=== PATIENT | female | born 1955 | race Caucasian/White ===

== ENCOUNTER 2022-08-25 12:35 | Outpatient (CLI) | payer MEDICARE, SELFPAY ==
[2022-08-25 21:53] LABS: Chloride* 99 mmol/L (96-114)
[2022-08-25 21:54] LABS: Albumin* 5.1 g/dL (3.3-5.0); Sodium* 139 mmol/L (135-149)
[2022-08-25 21:55] LABS: Potassium* 4.3 mmol/L (3.6-5.1)
[2022-08-25 21:57] LABS: Alkaline Phosphatase* 103 U/L (40-150); Aspartate Amino Transferase* 30 U/L (12-35); Bilirubin Total* 0.7 mg/dL (0.1-1.5); Blood Urea Nitrogen* 16 mg/dL (7-30); Carbon Dioxide* 29 mmol/L (20-32); Cholesterol* 166 mg/dL (90-199); Creatinine* 0.8 mg/dL (0.5-1.5); Estimated Glomerular Filt Rate 80 ml/min; Glucose* 94 mg/dL (60-115); Total Protein* 7.7 g/dL (6.0-8.3)
[2022-08-25 21:58] LABS: Alanine Aminotransferase* 30 U/L (4-35); Calcium* 10.2 mg/dL (8.4-10.6); HDL Cholesterol* 55 mg/dL (>=50); LDL Cholesterol Calculated 82 mg/dL (<100); Triglycerides* 143 mg/dL (40-149)
== END 2022-08-25 12:36 | disposition home or self-care (01) ==
PROVIDERS: PCP Physician Assistant Medical; Visit Provider Physician Assistant Medical
DX: Z00.00 Encounter for general adult medical examination without abnormal findings (principal); E78.5 Hyperlipidemia, unspecified; I10 Essential (primary) hypertension; Z13.29 Encounter for screening for other suspected endocrine disorder
CPT/HCPCS: 80053; 80061; 84443

== ENCOUNTER 2022-11-25 13:53 | Outpatient (CLI) | payer MEDICARE, SELFPAY ==
--- NOTE | 2022-11-25 14:00 | CRLHL7_ITS ---
For Patients: As a result of the Century Cures Act, medical imaging exams and procedure reports are released immediately into your electronic medical record. You may view this report before your referring provider. If you have questions, please contact your health care provider. BILATERAL SCREENING MAMMOGRAM WITH COMPUTER-AIDED DETECTION TECHNIQUE: CC and MLO views were obtained. These mammographic images have been obtained using full-field digital technique. These mammographic images were interpreted with the benefit of computer-aided detection. COMPARISON FILM: 10/07/21, 10/27/17, 07/09/16. FINDINGS: There are scattered areas of fibroglandular density. IMPRESSION: There is no radiographic evidence for malignancy. ASSESSMENT: BI-RADS Category 1: Negative RECOMMENDATION: Routine screening mammogram in 1 year. A lay language report of this examination will be provided to the patient. MAMADOU ESPARZA M.D. Diagnostic Radiologist [email or web address] Transcribed: 11/26/2022, 2:[address]/Dictated by: Mamadou Esparza MD @ 11/26/2022 8:14:00 AM (Electronically Signed)
== END 2022-11-25 13:54 | disposition home or self-care (01) ==
PROVIDERS: PCP Physician Assistant Medical; Visit Provider Physician Assistant Medical
DX: Z12.31 Encounter for screening mammogram for malignant neoplasm of breast (principal)
CPT/HCPCS: 77063; 77067

== ENCOUNTER 2022-12-01 06:49 | Day surgery (SDC) | payer MEDICARE, SELFPAY ==
[2022-12-01] VITALS (8 sets, daily range): BP systolic 113–135; BP diastolic 68–89; PULSE 56–62; RESP 16; TEMP 36.3–36.5; O2SAT 93–99; BMI 26.8
[2022-12-01] MEDS: LACTATED RINGERS 1000 ML 1,000 ML 100 ML IV (07:30)
[2022-12-01] MEDS: SODIUM CHLORIDE 0.9 % (FLUSH) 10 ML SYRINGE IVF (07:58)
[2022-12-01] MEDS: MIDAZOLAM HCL 1 MG/ML inj IVP (08:06)
[2022-12-01] MEDS: fentaNYL 100 MCG/2 ML inj IVP (08:06)
--- NOTE | 2022-12-01 08:06 | SUR.PREOP ---
TIME?OUT:?0803 PT/RN/MDA?VERIFICATION?OF?SURGICAL?SITE Right Arm,?PROCEDURE Nerve Block,?AND?CONSENT OBTAINED?PRIOR?TO?INVASIVE?PROCEDURE.
--- NOTE | 2022-12-01 08:30 | CRLHL7_ITS ---
For Patients: As a result of the Century Cures Act, medical imaging exams and procedure reports are released immediately into your electronic medical record. You may view this report before your referring provider. If you have questions, please contact your health care provider. Indication: right thumb MCP joint fusion Technique: Three fluoroscopic images of the right thumb. Fluoroscopic time 51.8 seconds. IMPRESSION: Fluoroscopic guidance for fusion about the 1st MCP joint. Dictated by Mamadou Garcia MD @ 12/01/2022 12:16:08 PM (Electronically Signed)
--- NOTE | 2022-12-01 08:33 | W.PM.NB ---
Nerve Block Nerve Block Time Seen by Provider: 08:10 Date Seen: 12/01/22 Type of block requested by surgeon for post-operative analgesia: axillary Side: right Time out performed: Yes Verification of patient name: Yes Verification of date of : Yes Site marking: site marked Name of person performing procedure: Sae Hensley Continuous monitoring Was continuous monitoring of O2 sat, B/P, environmental monitoring specialist, recorded every 15 minutes?: Yes Procedure Checklist: sterile prep, needles and gloves Ultrasound guided. Images saved: Yes Medications given in 5ml increments after negative aspiration: Lidocaine %: 2.0 mL: 20 Needle gauge: 21 Patient tolerated procedure well: Yes Additional comments: Injected in 5ml increments after negative aspiration Block Charges Block Charge (with Pro Fee): Axillary Nerve Use of Ultrasound Machine for Block: Yes- US Guidance/pain block
[2022-12-01] MEDS: CEFAZOLIN 2 GM in 0.9 % SODIUM CHLORIDE Mini-bag 100 ML IVPB (08:41)
--- NOTE | 2022-12-01 10:03 | P.ORPRC_ITS ---
Procedure Note Date of procedure: 12/01/22 Procedure: PREOPERATIVE DIAGNOSIS: 1. 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 Right thumb MCP joint arthrodesis 2. 25921 - Intraoperative fluoroscopy use and interpretation. SURGEON: Mychal Agee MD. SILK SCREEN PRINTER HELPER: Mahesh SONG - Of note, an real estate executive assistant was critical for this case to aid in patient positioning, tissue retraction, limb manipulation/positioning, finger manipulation/control, protection of critical structures, closure, and splinting. ANESTHESIA: Regional block IMPLANTS: AccuMed headless compression screw (3.6 mm) TOURNIQUET: 35 min 225 torr forearm tourniquet COMPLICATIONS: None evident INDICATIONS: The patient is a pleasant 67-year-old female who has experienced right thumb MCP joint deformity with angulation, subluxation of the DIP joint, pain, and dysfunction. Additionally, nonoperative management of been tried and failed. Thus surgery was indicated. DESCRIPTION OF PROCEDURE: Following a thorough discussion of risks, benefits, and alternatives consent was obtained and the operative digit(s) was marked. The patient was brought to the operating room and placed supine on the operating table after preoperative regional block was administered by Anesthesia in preop holding. 1 g IV Ancef was administered within 1 incision preoperatively. Proper time-out was performed identifying proper patient, site, and procedure. The operative extremity/digit was prepped and draped in the appropriate sterile fashion using ChloraPrep. The digit was exsanguinated and the tourniquet utilized on the forearm. Longitudinal incision was made overlying the thumb MCP joint. Sharp incision through skin and blunt dissection through subcutaneous tissue allowed identification of the extensor mechanism. EPL and EPB tendons were divided sharply and retracted to the respective sides. The joint capsule was divided longitudinally dorsally. The collateral ligaments were released and the joint dislocated. Osteophytes were rongeured around the perimeter. A guide pin was 1st placed into the metacarpal retrograde and reamed with a cup and cone Reamer. A size 14 was selected. This was performed after C-arm fluoroscopic imaging confirmed the guide pin to be in appropriate position. We then and did a similar process with the base of the proximal phalanx after guide pin, reaming, and penetrating the reamed metacarpal head and proximal phalanx base with a 1.5 mm drill bit to aid in bleeding and eventual fusion. A K-wire was then drilled into the proximal phalanx antegrade an exit out the IP joint. We then retrograde drilled this into the metacarpal head and shaft. It exited the metacarpal on the radial side slightly. A skin incision was made overlying the exit site at the mid to base part of the metacarpal were the K- wire exited. The screw length was selected (30 mm), this was reamed, and the screw placed. Excellent compression was achieved. The thumb was held at the MCP joint in approximately 20? of flexion and if anything slight pronation. C-arm was utilized to confirm pin location, MCP joint compression and position, and screw location. At this stage, a thorough irrigation normal saline was performed. Tourniquet was released. Hemostasis achieved. Closure of the skin flaps performed with 3-0 Vicryl to reapproximate the extensor mechanism, and 4-0 Monocryl/Stratafix. Dressings were applied and a thumb spica splint was applied. The patient was woken from anesthesia and transferred the recovery room in stable condition. PLAN: 1. Encourage elevation of the operative extremity. 2. Icing of the fingers and hand/wrist as tolerated/needed 3. Acetaminophen and/or Percocet as needed for pain control. 4. Follow up with PA visit in 7-10 days for removal of splint, transition to thumb spica cast. Include the IP joint. Follow-up at 5 week [place] postop for cast removal and x-rays at that visit (3 views thumb) with OT visit to follow for Orthoplast splint fabrication.
--- NOTE | 2022-12-01 10:30 | W.ANESCHARGE ---
Anesthesia Charges Start Date/Time Anesthesia Start Date: 12/01/22 Anesthesia Start Time: 08:34 Stop Date/Time Anesthesia Stop Date: 12/01/22 Anesthesia Stop Time: 10:28
== END 2022-12-01 11:29 | disposition home or self-care (01) ==
PROVIDERS: PCP Physician Assistant Medical; Visit Provider Orthopaedic Surgery Sports Medicine
PROC: (CPT 26860; principal; 2022-12-01 08:45)
DX: M18.11 Unilateral primary osteoarthritis of first carpometacarpal joint, right hand (principal)
CPT/HCPCS: 26850; 1820; 64417; 73140; 76942; C1713; J0690; J2250; J2405; J2704; J3010; J3490; J7120

== ENCOUNTER 2023-02-18 09:00 | Outpatient (RCR) | payer MEDICARE, SELFPAY ==
--- NOTE | 2023-01-07 13:35 | OT.OPOE ---
OT Outpatient Ortho Eval OT Outpatient Ortho Eval Start: 01/06/23 18:34 Freq: Status: Active Protocol: Document 01/07/23 10:27 AMB (Rec: 01/07/23 12:48 AMB [id number]) E-signed By Jess Odonnell, OTR/L, CLT, RADIOLOGIC TECHNICIAN OT OP Ortho Eval Details Type Type Eval Insurance Information Insurance Information Medicare B Outpatient History/Precautions Current Condition/Medical Diagnosis Referring Provider Dr Agee Treatment Diagnosis RUE thumb MCP arthrodesis Date of Onset 12/01/22 Precautions Lifting Restrictions,Range of Motion Medical Conditions Depression,Metal Implants, Arthritis Other Conditions BLE TKA 2013 with revision in 2021. Medical/Functional History Medical History Reviewed Yes Prior Level of Function/Mobility Full use of RUE with arthritic pain / limitations in the thumb. Social History Employment Status Retired Current Occupation Retired but cares for grandchildren Hobbies Riding and caring for horses, gardening Oriented Mental Status No Concerns Ortho Subjective Subjective Subjective Pt states she has had increased pain in her thumb over the past few years due to arthritis. Pt states she's had arthritis in her hands for years. Pt feels she is doing ok since surgery, not needing any pain meds, using Tylenol and Ibuprofen prn. Pt states when she has pain it is around 3/10. Wrist Goniometric Wrist Right Active Flexion (70-90 degrees) 70 Active Extension (60-70 degrees) 45 L Active Ulnar Deviation (20-30 degrees) 25 Active Radial Deviation (15-20 degrees) 20 Thumb Goniometric Thumb Left Active MCP Flexion (40-50 degrees) 15 L Active MCP Extension (0 degrees) 0 H Active IP Flexion (70-100 degrees) 15 L Query Text: Opposition to 5th Digit Tip (0 cm) 0 H OT Objective Data Hand Hand Dominance Right Skin/Wounds Skin Integrity Comments 01/07/23 Surgical incision is covered with post-op glue, incision is intact. No drainage, no s/s of infection. Sensation Sensation Assessment Summary Comments 01/07/23 Pt denies paresthesia. OT Problems Problems Problems Decreased Strength,Decreased Range of Motion,Decreased Dexterity,Decreased Fine Motor ,Decreased Coordination, Lifting,Gripping,Pinching Other Problems Writing,Opening Containers, Dressing,Computer,Fasteners Patient Potential Good Assessment Assessment Assessment Pt presents to OT following her f/u with Dr Agee. Pt has orders for eval and treat and custom splinting for protective healing of the RUE thumb MP arthrodesis. Pt is doing well, minimal pain. Pt does have generalized RUE weakness and limited AROM in the fingers, thumb and wrist. Pt will benefit from skilled OT services in order to restore full, pain-free use of her RUE. Pt has multiple orthopedic deformities in her hand joints secondary to OA, she may also benefit from pt education regarding joint protection techniques. Occupational Therapy Treatment Plan - OP Potential Rehabilitation Potential Good Set Goals Goals Set with Patient Yes Goals Goals 1. Pt will be independent and compliant with HEP in order to resume full, pain-free use of the involved UE. 3 weeks 2. Pt will demonstrate full, pain-free AROM of the involved UE in order to improve ability to grasp and hold. 6 weeks 3. Pt will demonstrate pain- free electricity trader and pinch strength comparable to the uninvolved side in order to improve functional grasp, hold, reach, and lifting ability needed to complete self-care, leisure tasks, and work activities. 8 weeks. Target Date 03/09/23 Progress set Treatment Plan Treatment Plan Evaluation,Edema Control,Joint Mobilization,Manual Therapy, Splinting,Ultrasound,Wound Care/Scar Management, Therapeutic Exercise, Therapeutic Activities,Self- Care/Home Management,Education Expected Frequency 1-2x Week Expected Duration 8-10 Weeks Certification Certification I Certify That: Therapy Services Provided, Therapy Plan Established, Therapy Plan Reviewed Recertification Information Recertification Information Initial Certification Date 01/07/23 Recertification Due Date 04/07/23 Reasons to Continue Skilled Therapy Initiated OT today for custom splinting and rehabilitation following RUE thumb MCP arthrodesis. Rehabilitation Potential Good. Continued Plan of Care and Interventions Please refer to above POC. Provider Signature Shows Agreement With POC & Medical Necessity Physician Comment/Change Comment or Changes Physician NPI Number #
== END 2023-06-18 23:59 | disposition home or self-care (01) ==
PROVIDERS: PCP Physician Assistant Medical; Visit Provider Physician Assistant Surgical
DX: Z98.1 Arthrodesis status (principal); Z51.89 Encounter for other specified aftercare
CPT/HCPCS: 97110; 97140; L3913; X5282

== ENCOUNTER 2023-03-31 14:49 | Outpatient (CLI) | payer MEDICARE, SELFPAY ==
--- NOTE | 2023-03-31 15:00 | CRLHL7_ITS ---
For Patients: As a result of the Century Cures Act, medical imaging exams and procedure reports are released immediately into your electronic medical record. You may view this report before your referring provider. If you have questions, please contact your health care provider. DXA BONE MINERAL DENSITY STUDY Current height (in): 65.0. Weight (lb): 165.0. Menopause age: 48. Ethnicity: White. Reason for exam: Screening for osteoporosis. 1. Have you had a previous hip or vertebral fracture? No. 2. Have you had any fractures during your adult life which did not result from significant trauma (e.g., auto accident)? No. 3. Did either of your parents have a hip fracture? No. 4. Do you smoke? No. 5. Have you ever taken Glucocorticoids? No. 6. Do you have rheumatoid arthritis? Yes. 7. Do you have secondary osteoporosis? No. 8. Do you drink 3 or more alcoholic drinks per day? No. 9. Are you being treated for osteoporosis? No. 10. Have you ever taken any of the following medications: Actonel, Evista, Fosamax, Miacalcin, Reclast, Boniva, Forteo, HRT (i.e. estrogen/hormone therapy), Protelos, Prolia, Vitamin D, Calcium, other ??? please specify. ANSWER: Yes, vitamin D, calcium. 11. Do you have any of the following medical conditions: Anorexia or bulimia, asthma or emphysema, end stage renal disease, hyperparathyroidism, any seizure disorders, cancer, inflammatory bowel diseases, hysterectomy, other ??? please specify. ANSWER: Yes, asthma or emphysema. 12. What was your maximum height (inches)? 65. 13. Do you perform weight bearing exercise regularly? No. 14. Do you regularly consume dairy products? Yes. 15. Do you drink caffeinated beverages? Yes. 16. At what age did your period start? 11. 17. Are you premenopausal? No. 18. How many full term pregnancies have you had? 4. 19. Have you ever missed your period for more than 6 months in a row (not including or menopause)? No. TECHNIQUE: Bone mineral density study was performed using the [employer]. FINDINGS: The results of the study expressed as bone mineral density (BMD) are as follows: Lumbar spine L1 to L4: BMD: 1.087 g/cm2. T-score: 0.4. Z-score: 2.4. Neck Left: BMD: 0.741 g/cm2. T-score: -1.0. Z-score: 0.8. Right: BMD: 0.759 g/cm2. T-score: -0.8. Z-score: 1.0. Total Left: BMD: 0.988 g/cm2. T-score: 0.4. Z-score: 1.9. Right: BMD: 0.945 g/cm2. T-score: 0.0. Z-score: 1.5. IMPRESSION: Normal bone density. *Comparison exams done prior to 03/2020 were performed on different unit, [employer]. COMPARISON: Compared with scan of 10/07/2021, the bone mineral density has decreased by 1.2 percent at the spine and decreased by 0.7 percent at the hip. Mamadou Garcia M.D. Diagnostic Radiologist [email or web address] Transcribed: 9:58 am DW/Dictated by: Mamadou Garcia MD @ 04/01/2023 6:51:00 AM (Electronically Signed)
== END 2023-03-31 14:50 | disposition home or self-care (01) ==
LOC: RAD 14:49
PROVIDERS: PCP Physician Assistant Medical; Visit Provider Physician Assistant Medical
DX: Z13.820 Encounter for screening for osteoporosis (principal); Z78.0 Asymptomatic menopausal state
CPT/HCPCS: 77080

== ENCOUNTER 2023-08-04 11:15 | Outpatient (RCR) | payer MEDICARE, SELFPAY ==
--- NOTE | 2023-07-29 17:58 | OT.OPODN ---
OT Outpatient Ortho Daily Note OT Outpatient Ortho Daily Note* Start: 07/29/23 15:41 Freq: Status: Active Protocol: Document 07/29/23 15:41 AMB (Rec: 07/29/23 17:55 AMB [id number]) E-signed By Jess Odonnell, OTR/L, CLT, IMPROVEMENT DIRECTOR Type of Note Type of Note Type of Note Daily Note Visit Number 1 Insurance Information Insurance Information [facility],Medicare B Outpatient History/Precautions Current Condition/Medical Diagnosis Referring Provider Dr Agee Treatment Diagnosis RUE thumb MCP arthrodesis with non-union Date of Onset 12/01/22 Other Precautions No heavy use of the RUE, splint on with activity Medical Conditions Depression,HTN,Metal Implants, Arthritis Other Conditions Medications: albuteisit Daterol sulfate 90 mcg/actuation 2 puffs inhalation Q4H PRN amlodipine 5 mg PO BID atorvastatin 10 mg PO QHS fluoxetine 40 mg PO QAM hydrochlorothiazide 25 mg orally once daily for blood pressure; losartan 100 mg PO QDAY PMH: Snoring (Acute) R06.83 - Snoring (ICD-10) Postsurgical arthrodesis status (Acute 12/01/22) right thumb MCP joint arthrodesis (12/01/2022, Dr. Agee) - with nonunion clinically and radiographically Z98.1 - Arthrodesis status ( ICD-10) Urinary leakage (Acute) R32 - Unspecified urinary incontinence (ICD-10) Thyroid nodule (Acute) Last ultrasound was 11/06/2021 E04.1 - Nontoxic single thyroid nodule (ICD-10) Hyperlipidemia (Acute) E78.5 - Hyperlipidemia, unspecified (ICD-10) Gastroesophageal reflux disease (Acute) EGD K21.9 - Gastro-esophageal reflux disease without esophagitis (ICD-10) Elevated liver function tests (Acute) 11/02/2021-AST 33, ALT 47 10/31/2020-AST 77, ALT 47 R79.89 - Other specified abnormal findings of blood chemistry (ICD-10) Hypertension (Acute) I10 - Essential (primary) hypertension (ICD-10) Medical History (Reviewed @ 09:24 by Berry Osorio) Carotid bruit present R09.89 - Other specified symptoms and signs involving the circulatory and respiratory systems (ICD-10) Surgical History (Reviewed @ 09:24 by Berry Osorio) Postsurgical arthrodesis status (12/01/22) Z98.1 - Arthrodesis status ( ICD-10) Status post revision of total replacement of right knee () Z96.651 - Presence of right artificial knee joint (ICD-10) History of bladder surgery Z98.890 - Other specified postprocedural states (ICD-10) History of bilateral knee replacement (03/20/14) Z96.653 - Presence of artificial knee joint, bilateral (ICD-10) Medical/Functional History Medical History Reviewed Yes Prior Level of Function/Mobility Full use of the RUE with arthritic pain in the MCP of thumb Social History Employment Status Retired Hobbies Gardening, taking care of horses Fitness Stays active on the farm Ortho Subjective Subjective Subjective Pt returns to OT for custom splinting. Pt had arthrodesis of the RUE thumb MCP joint in November. Pt received OT for ROM, strengthening and splinting. Pt had a setback and had to endure more casting due to non-union. Pt got her final cast off today and is in need of additional custom splint for protective healing of the MCP joint. Pt is also using a bone stimulator which she will have until the end of August at which point she will return to orthopedics for re-check. Pt states she really isn't having any pain in her thumb and has been trying hard to rest her hand which is difficult as she enjoys working outside, gardening and working with horses. OT OP Daily Ortho Note/Assessment Splinting Splinting Minutes (minutes) 35 Splinting Comments Provided pt with a custom fabricated, RUE, hand based thumb spica orthosis with IP free for protected healing of the MCP arthrodesis. Pt was advised to follow Dr Holly' s recommendations to wear splint with activity. Pt states she has home exercise program from previous round of therapy to work on her IP joint and wrist ROM, she will resume these now that the cast has been removed, understands that she should do no more than that and especially to avoid strengthening exs. Home Program Home Program Home Program Initiated Home Program Specifics AROM of thumb IP and wrist on the RUE, splint on with all activity Assessment Assessment Assessment Pt is a very pleasant 67yo female presenting for custom splinting for RUE MCP arthrodesis. Pt did have a custom splint that she received following her surgery but states she wore it out and it cracked. Pt has had a rough go of her healing, states she's had to have 3 or 4 casts and a bone stimulator, states she was happy to find out today that things were looking better on her x-ray. Pt denies any pain but does understand that she needs to continue to protect the arthrodesis in order to solidify the fusion. Pt will continue to use her splint with activity, she will also continue with the bone stimulator and AROM exs for the IP and wrist only at this time. Pt feels she would like to work on her HEP on her own at this time. Occupational Therapy Treatment Plan - OP Potential Rehabilitation Potential Good Set Goals Goals Set with Patient Yes Goals Goals 1. Pt will be provided with a custom fabricated, hand based, RUE thumb spica splint for protected healing of the MCP arthrodesis. This goal was met today. Treatment Plan Treatment Plan Splinting Other Treatment Plan 1 visit for splinting. Expected Duration 1 visit Occupational Therapy Billing Units Treatment Minutes Untimed Treatment Minutes 35 Total Treatment Minutes 35 Ortho Billing Units Hand/Finger Orthosis W/O JTS CF 1 Certification Certification I Certify That: Therapy Services Provided, Therapy Plan Established, Therapy Plan Reviewed Recertification Information Recertification Information Initial Certification Date 07/29/23 Recertification Due Date 10/27/23 Reasons to Continue Skilled Therapy Provided pt with custom orthosis for protected healing of RUE MCP arthrodesis. Rehabilitation Potential Good Continued Plan of Care and Interventions 1x visit or prn if splint needs adjusting or HEP need progressing. Provider Signature Shows Agreement With POC & Medical Necessity Physician Comment/Change Comment or Changes Physician NPI Number #
== END 2023-12-02 23:59 | disposition home or self-care (01) ==
PROVIDERS: PCP Physician Assistant Medical; Visit Provider Orthopaedic Surgery Sports Medicine
DX: Z98.1 Arthrodesis status (principal); Z51.89 Encounter for other specified aftercare
CPT/HCPCS: L3913

== ENCOUNTER 2024-09-17 09:11 | Outpatient (CLI) | payer MEDICARE, SELFPAY | END 2024-09-17 09:12 | disposition home or self-care (01) | LOC: NFLDREF 09-19 10:10 | PROVIDERS: PCP Physician Assistant Medical; Referring Provider Physician Assistant Medical; Visit Provider Physician Assistant Medical | DX: I10 Essential (primary) hypertension (principal); E78.5 Hyperlipidemia, unspecified; R79.89 Other specified abnormal findings of blood chemistry; F41.9 Anxiety disorder, unspecified; M54.2 Cervicalgia; G89.29 Other chronic pain | CPT/HCPCS: 80048; 80061 ==

== ENCOUNTER 2024-11-13 13:12 | Outpatient (CLI) | payer MEDICARE, SELFPAY ==
--- NOTE | 2024-11-13 13:20 | CRLHL7_ITS ---
For Patients: As a result of the Century Cures Act, medical imaging exams and procedure reports are released immediately into your electronic medical record. You may view this report before your referring provider. If you have questions, please contact your health care provider. BILATERAL SCREENING MAMMOGRAM WITH COMPUTER-AIDED DETECTION AND TOMOSYNTHESIS TECHNIQUE: CC and MLO views were obtained. These mammographic images have been obtained using full-field digital technique. These mammographic images were interpreted with the benefit of computer-aided detection. Breast Tomosynthesis was used in this interpretation. COMPARISON FILM: 11/25/22, 10/07/21, 01/25/19. FINDINGS: There are scattered areas of fibroglandular density. IMPRESSION: There is no radiographic evidence for malignancy. ASSESSMENT: BI-RADS Category 2: Benign RECOMMENDATION: Routine screening mammogram in 1 year. A lay language report of this examination will be provided to the patient. Adeel Magana M.D. Diagnostic/Nuclear Medicine Radiologist [email or web address] SP/Dictated by: Adeel Magana MD @ 11/15/2024 9:17:00 AM (Electronically Signed)
== END 2024-11-13 13:13 | disposition home or self-care (01) ==
LOC: MAMMO 13:13
PROVIDERS: PCP Physician Assistant Medical; Visit Provider Physician Assistant Medical
DX: Z12.31 Encounter for screening mammogram for malignant neoplasm of breast (principal)
CPT/HCPCS: 77063; 77067

== ENCOUNTER 2025-08-06 07:57 | Outpatient (CLI) | payer MEDICARE, SELFPAY ==
--- NOTE | 2025-08-06 09:08 | P.ANES_ITS ---
Anesthesia Charges Start Date/Time Anesthesia Start Date: 08/06/25 Anesthesia Start Time: 08:25 Stop Date/Time Anesthesia Stop Date: 08/06/25 Anesthesia Stop Time: 09:03 Summary Extremes of Age - Over 70 or under 1: PHYSICIST CRYOGENICS Coding CPT Codes CPT Codes: ANES UPR LWR GI NDSC PX - 85411 ([id number]) P2 - PATIENT W/MILD SYST DISEASE, QK - PERSONAL COACH 2-4 CNCRNT ANES PROC, QX - PHYSICIST CRYOGENICS SVC W/ MD MED DIRECTION Additional Codes: Summary - Extremes of Age - Over 70 or under 1: PHYSICIST CRYOGENICS ([id number])
--- NOTE | 2025-08-06 09:08 | W.ANESCHARGE ---
Anesthesia Charges Start Date/Time Anesthesia Start Date: 08/06/25 Anesthesia Start Time: 08:25 Stop Date/Time Anesthesia Stop Date: 08/06/25 Anesthesia Stop Time: 09:03 Summary Extremes of Age - Over 70 or under 1: MATTRESS SPRING ENCASER Coding CPT Codes CPT Codes: ANES UPR LWR GI NDSC PX - 40176 ([id number]) P2 - PATIENT W/MILD SYST DISEASE, QK - CASE SUPERVISOR 2-4 CNCRNT ANES PROC, QX - MATTRESS SPRING ENCASER SVC W/ MD MED DIRECTION Additional Codes: Summary - Extremes of Age - Over 70 or under 1: MATTRESS SPRING ENCASER ([id number])
--- NOTE | 2025-08-06 09:30 | P.ANES_ITS ---
Anesthesia Charges Start Date/Time Anesthesia Start Date: 08/06/25 Anesthesia Start Time: 08:25 Stop Date/Time Anesthesia Stop Date: 08/06/25 Anesthesia Stop Time: 09:03 Summary Extremes of Age - Over 70 or under 1: MDA Coding CPT Codes CPT Codes: ANES UPR LWR GI NDSC PX - 23591 ([id number]) P2 - PATIENT W/MILD SYST DISEASE, QK - FRUIT HARVEST WORKER 2-4 CNCRNT ANES PROC, QX - FURNACE WORKER SVC W/ MD MED DIRECTION Additional Codes: Summary - Extremes of Age - Over 70 or under 1: JAK ([id number])
--- NOTE | 2025-08-06 09:30 | W.ANESCHARGE ---
Anesthesia Charges Start Date/Time Anesthesia Start Date: 08/06/25 Anesthesia Start Time: 08:25 Stop Date/Time Anesthesia Stop Date: 08/06/25 Anesthesia Stop Time: 09:03 Summary Extremes of Age - Over 70 or under 1: MDA Coding CPT Codes CPT Codes: ANES UPR LWR GI NDSC PX - 62675 ([id number]) P2 - PATIENT W/MILD SYST DISEASE, QK - SEARCH ENGINE OPTIMIZATION STRATEGIST 2-4 CNCRNT ANES PROC, QX - MANAGER QUALITY IMPROVEMENT SVC W/ MD MED DIRECTION Additional Codes: Summary - Extremes of Age - Over 70 or under 1: JAK ([id number])
== END 2025-08-06 07:58 | disposition home or self-care (01) ==
LOC: OP CLINIC 07:59
PROVIDERS: PCP Family Medicine; Visit Provider Internal Medicine
DX: Z12.11 Encounter for screening for malignant neoplasm of colon (principal); K21.9 Gastro-esophageal reflux disease without esophagitis; K57.30 Diverticulosis of large intestine without perforation or abscess without bleeding
CPT/HCPCS: 00813; 43239; 45378; 88305; 99100; J2704; J3490

== ENCOUNTER 2025-09-24 09:20 | Outpatient (CLI) | payer MEDICARE, SELFPAY | END 2025-09-24 09:21 | disposition home or self-care (01) | LOC: NFLDREF 09-28 01:35 | PROVIDERS: PCP Family Medicine; Referring Provider Family Medicine; Visit Provider Family Medicine | DX: I10 Essential (primary) hypertension (principal); E78.5 Hyperlipidemia, unspecified | CPT/HCPCS: 80053; 80061 ==

== ENCOUNTER 2025-10-22 09:32 | Outpatient (CLI) | payer MEDICARE, SELFPAY ==
--- NOTE | 2025-10-22 09:45 | CRLHL7_ITS ---
For Patients: As a result of the Cures Act, medical imaging exams and procedure reports are released immediately into your electronic medical record. You may view this report before your referring provider. If you have questions, please contact your health care provider. BILATERAL DIAGNOSTIC MAMMOGRAM WITH COMPUTER-AIDED DETECTION AND TOMOSYNTHESIS RIGHT BREAST ULTRASOUND CLINICAL HISTORY: RIGHT axillary lump. COMPARISON: 11/13/2024, 11/25/2022, 10/07/2021. TECHNIQUE: Digital BILATERAL mammogram in 4 projections with computer-aided detection. Tomosynthesis was used in this interpretation. Real-time ultrasound imaging of RIGHT axilla with imaging documentation. BREAST COMPOSITION: There are scattered areas of fibroglandular density. FINDINGS: 3D CC/MLO BILATERAL mammogram images submitted. Stable right axillary lymph nodes. Benign BILATERAL calcifications. No architectural distortion. Targeted RIGHT axillary ultrasound performed. Normal axillary lymph nodes are present with normal central fatty joe and no cortical thickening. IMPRESSION: Normal RIGHT axillary lymph nodes not significantly changed. No evidence of malignancy. RECOMMENDATIONS: Routine screening mammography. A lay language report of this examination will be provided to the patient. BI-RADS Category 2. Benign. Dictated by Mamadou Garcia MD @ 10/22/2025 10:48:09 AM/[facility] bM/Dictated by: Mamadou Garcia MD @ 10/22/2025 10:48:00 AM (Electronically Signed)
--- NOTE | 2025-10-22 10:15 | CRLHL7_ITS ---
For Patients: As a result of the Century Cures Act, medical imaging exams and procedure reports are released immediately into your electronic medical record. You may view this report before your referring provider. If you have questions, please contact your health care provider. PLEASE SEE BILATERAL BREAST DIAGNOSTIC MAMMOGRAM OF SAME DAY. CRL:[email or web address] /Dictated by: Mamadou Garcia MD @ 10/22/2025 10:57:00 AM (Electronically Signed)
== END 2025-10-22 09:33 | disposition home or self-care (01) ==
LOC: MAMMO 09:32
PROVIDERS: PCP Family Medicine; Visit Provider Family Medicine
DX: R22.31 Localized swelling, mass and lump, right upper limb (principal)
CPT/HCPCS: 76882; 77066; G0279